=== PATIENT | male | born 1995 | race Caucasian/White ===

== ENCOUNTER 2020-04-23 16:04 | Emergency (ER) | payer BC, SELFPAY ==
--- NOTE | ~2020-04-23 | CT_ITS ---
EXAMINATION: CT soft tissue neck w con DATE: 04/23/2020 17:52 INDICATION: Sore throat for 3 days TECHNIQUE: Computed tomography (CT) of the neck was performed with 75 mL Omnipaque-350 intravenous co ntrast. Automated exposure control and iterative reconstruction technique were employed. Exam dose: 505.76 mGy-cm total exam DLP. COMPARISON: None FINDINGS: 1.6 cm mucous retention cyst or polyp of left maxillary sinus. No cervical mass lesion or abnormally enlarged cervical lymph nodes are noted. The airway is patent. Normal size and homogeneous enhancement of the thyroid gland. The parotid and submandibular glands appear normal. No common and internal carotid artery stricture o r dissection or occlusion is evident. The vertebral and basilar arteries appear intact. No mass lesion of the superior mediastinum. Normal thoracic aortic arch and great vessels. The lung a pices are clear. IMPRESSION: No significant abnormality Reviewed, dictated and finalized at [facility] Reviewed, dictated and finalized at [facility]. SPORTATION AIDE IMPRESSION: No significant abnormality
[2020-04-23 16:07] VITALS: BP 149/79; PULSE 78; RESP 20; TEMP 36.3; O2SAT 100
--- NOTE | 2020-04-23 16:34 | ED.GENADULT ---
HPI - General Adult General Chief complaint: Unspecified Stated complaint: SORE THROAT Time Seen by Provider: 04/23/20 16:16 Source: patient History of Present Illness HPI narrative: Patient is a 24 y/o male complaining of sorethroat for last 3-4 days. He states that his soreness is mild. It seems to be aggravated by swallowing. However, he is able to eat and drink. He feels like there is some narrowing in his throat when he swallows. He denies any fever or cough. Related Data Home Medications Medication Instructions Recorded Confirmed No Home Medications 04/23/20 04/23/20 Allergies Allergy/AdvReac Type Severity Reaction Status Date / Time amoxicillin Allergy Severe passes out Verified 04/23/20 16:06 clavulanic acid Allergy Mild LIGHTHEADED Verified 04/23/20 16:06 NESS Review of Systems Constitutional: Constitutional: Denies chills, Denies fever(s), Denies headache(s) and Denies weakness Eyes: Eyes: Denies blurry vision ENT: Denies headache(s), Denies neck pain and Reports sore throat Cardiovascular: Cardiovascular: Denies chest pain and Denies dyspnea Respiratory: Respiratory: Denies cough and Denies dyspnea Gastrointestinal: Gastrointestinal: Denies abdominal pain, Denies diarrhea, Denies nausea and Denies vomiting Genitourinary: Genitourinary: Denies hematuria and Denies dysuria Musculoskeletal: Musculoskeletal: Denies back pain and Denies neck pain Neurologic: Denies headache(s) and Denies weakness PMFSH Family History Family History Father Diabetes mellitus Hypertension Family history of malignant neoplasm of kidney Patient's father is in good health Mother Patient's mother is in good health Social History Social History Smoking status: Never smoker Second hand tobacco smoke exposure: No Alcohol intake: current Gender identity (if verbalized by the patient): Male Exam Const: General: no acute distress and well developed Orientation/consciousness: oriented to person, oriented to place, oriented to time and patient oriented x3 HENMT: Head: normocephalic Ears: external ears normal General nose exam: Normal external nose present Eyes: General: appearance normal, both eyes and all related structures Conjunctivae: conjunctivae normal Neck: Neck: normal visual inspection and full ROM Chest: Chest palpation & inspection: normal inspection of the chest and no tenderness Resp: Effort & Inspection: normal respiratory effort Auscultation: clear to auscultation bilaterally Cardio: Rate: regular rate Rhythm: regular rhythm GI: GI Palp: No abdominal tenderness and Yes Soft to palpation Skin: General skin exam: normal color and turgor normal Neuro: General: oriented to person, oriented to place, oriented to time and patient oriented x3 Cognition (Neuro): normal cognition Extrem: General: normal to inspection, full ROM and no pedal edema Psych: Appearance: grossly normal Mental Status: mental status grossly normal Affect: normal affect Course Vital Signs Vital signs: Vital Signs Temperature 36.3 C L 04/23/20 16:07 Pulse Rate 78 04/23/20 16:07 Respiratory Rate 04/23/20 16:07 Blood Pressure 149/79 H 04/23/20 16:07 Pulse Oximetry 100 04/23/20 16:07 Temperature 36.3 C L 04/23/20 16:07 Pulse Rate 78 04/23/20 16:07 Respiratory Rate 20 04/23/20 16:07 Blood Pressure 149/79 H 04/23/20 16:07 Pulse Oximetry 100 04/23/20 16:07 Medical Decision Making Vital Signs Vital Signs: Vital Signs Temperature 36.3 C L 04/23/20 16:07 Pulse Rate 78 04/23/20 16:07 Respiratory Rate 20 04/23/20 16:07 Blood Pressure 149/79 H 04/23/20 16:07 Pulse Oximetry 100 04/23/20 16:07 Temperature 36.3 C L 04/23/20 16:07 Pulse Rate 78 04/23/20 16:07 Respiratory Rate 04/23/20 16:07 Blood Pressure 149/79 H 04/23/20 16:07 Pu
[2020-04-23 17:14] LABS: Basophils Percent Auto 0.6 % (0.2-1.2); Eosinophils Absolute Auto 0.2 K/mm3 (0-0.3); Eosinophils Percent Auto 3.1 % (0-4.4); Hematocrit 45.8 % (42.0-52.0); Immature Granulocyte Absolute 0.01 K/mm3 (0.00-0.031); Immature Granulocyte Percent A 0.1 % (0-0.5); Lymphocytes Absolute Auto 2.35 K/mm3 (0.9-3.2); Lymphocytes Percent Auto 32.8 % (18.3-44.2); Mean Corpuscular HGB Conc 34.9 g/dl (32-36); Mean Corpuscular Volume 83.1 fl (80-100); Mean Platelet Volume 11.5 fl (7.4-10.4); Monocytes Absolute Auto 0.4 K/mm3 (0.1-0.6); Monocytes Percent Auto 5.6 % (2.6-8.5); Neutrophils Absolute Auto 4.1 K/mm3 (1.3-6.7); Neutrophils Percent Auto 57.8 % (45.5-73.1); Platelet Count Result 195 k/mm3 (150-375); Red Blood Count 5.51 M/mm3 (4.6-6.20); Red Cell Distribution Width 11.9 % (11.5-14.5); White Blood Count 7.2 K/mm3 (4.5-10.0)
[2020-04-23 17:24] LABS: Anion Gap 11 mmol/L (8-16); Blood Urea Nitrogen 11 mg/dL (9-20); Calcium 9.1 mg/dL (8.4-10.2); Carbon Dioxide 31 mmol/L (22-30); Chloride 98 mmol/L (98-107); Estimated CRCL calculation 123 ml/min; Estimated Glomerular Filt Rate > 60; Glucose 88 mg/dL (75-110); Potassium 3.5 mmol/L (3.4-5.0); Sodium 140 mmol/L (137-145)
== END 2020-04-23 19:00 | disposition home or self-care (01) ==
PROVIDERS: Emergency Provider Emergency Medicine; Family Provider Pediatrics
DX: J02.9 Acute pharyngitis, unspecified (principal); J35.8 Other chronic diseases of tonsils and adenoids
CPT/HCPCS: 36415; 70491; 80048; 85025; 87081; 87880; 99284; Q9967

== ENCOUNTER 2021-06-30 14:01 | Emergency (ER) | payer MEDICAID, SELFPAY ==
[2021-06-30 14:09] VITALS: BP 139/81; PULSE 79; RESP 16; TEMP 36.8; O2SAT 98
--- NOTE | 2021-06-30 14:09 | ED.URI ---
HPI - URI/Sore Throat General Chief Complaint: Upper Respiratory Infection Stated Complaint: sore throat Time Seen by Provider: 06/30/21 14:10 Source: patient, family, RN notes reviewed and old records reviewed Mode of arrival: ambulatory Limitations: no limitations History of Present Illness HPI Narrative: 25-year-old male presents to the [facility] with complaints of a sore throat since June 17, 2 weeks ago, when he was exposed to someone with tonsillitis. Denies fevers. Denies coughing, chest pain, abdominal pain, nausea, vomiting or diarrhea. MD elicited complaint: sore throat Related Data Home Medications Medication Instructions Recorded Confirmed No Home Medications 04/23/20 06/30/21 Allergies Allergy/AdvReac Type Severity Reaction Status Date / Time amoxicillin Allergy Severe passes out Verified 06/30/21 14:07 clavulanic acid Allergy Mild LIGHTHEADED Verified 06/30/21 14:07 NESS Review of Systems Review of Systems: All systems reviewed & are unremarkable except as noted in HPI and below Constitutional: Constitutional: Reports no additional constitutional complaints, Denies chills, Denies fever(s) and Denies headache(s) Eyes: Eyes: Reports no additional eye complaints ENT: Reports as per HPI, Denies vertigo, Denies dizziness, Denies headache(s), Denies nasal congestion and Reports sore throat Cardiovascular: Cardiovascular: Reports no additional cardiovascular complaints, Denies chest pain, Denies syncope, Denies rapid heart rate and Denies dyspnea Respiratory: Respiratory: Reports no additional respiratory complaints, Denies cough, Denies dyspnea and Denies wheezing Gastrointestinal: Gastrointestinal: Reports no additional gastrointestinal complaints, Denies abdominal pain, Denies diarrhea, Denies nausea and Denies vomiting Musculoskeletal: Musculoskeletal: Reports no additional musculoskeletal complaints and Denies numbness Integumentary/Breasts: Skin/Breast: Reports system reviewed and no additional complaints, except as docu Neurologic: Reports system reviewed and no additional complaints, except as documented, Denies vertigo, Denies dizziness, Denies syncope, Denies headache(s), Denies focal weakness and Denies numbness Psychiatric: Psychiatric: Reports no additional psychiatric complaints Allergic/Immunologic: Allergic/Immunologic: Reports no additional allergic/immunologic complaints and Denies wheezing PMFSH Family History Family History Father Diabetes mellitus Hypertension Family history of malignant neoplasm of kidney Patient's father is in good health Mother Patient's mother is in good health Social History Social History Smoking status: Never smoker Second hand tobacco smoke exposure: No Alcohol intake: current Gender identity (if verbalized by the patient): Male Comments At the time of my signature, I reviewed and agree with the nursing past medical, surgical, social, and family history. There is no relevant family history pertinent to the patient complaint. Exam Const: General: cooperative, healthy appearing, no acute distress, well developed and alert Nutritional Appearance: well nourished Orientation/consciousness: patient oriented x3 Limitations: no limitations HENMT: Head: normal to inspection Ears: external ears normal, TM's normal bilaterally and EAC's normal Face and sinus: normal facial exam Mouth: Yes Normal oral and palatal mucosa present Throat: tonsils normal, uvula midline, postnasal drainage and no uvular edema Eyes: Conjunctivae: conjunctivae normal Pupils: Equal, round and reactive pupils present Neck: Neck: normal visual inspection, no lymphadenopathy and no meningeal signs Chest: Chest palpation & inspection: normal inspection of the chest Resp: Effort & Inspection: normal respiratory effort and no use of accessory muscles Ausc
[2021-06-30 14:13] VITALS: BP 139/81; PULSE 79; RESP 16; TEMP 36.8; O2SAT 98
== END 2021-06-30 14:43 | disposition home or self-care (01) ==
PROVIDERS: Emergency Provider Nurse Practitioner
DX: J02.9 Acute pharyngitis, unspecified (principal); R09.82 Postnasal drip; J45.909 Unspecified asthma, uncomplicated
CPT/HCPCS: 87081; 87880; 99213; G0463

== ENCOUNTER 2023-02-01 19:01 | Emergency (ER) | payer BC, SELFPAY ==
[2023-02-01 19:11] VITALS: BP 126/68; PULSE 76; RESP 18; TEMP 36.2; O2SAT 95
[2023-02-01 22:41] VITALS: BP 129/70; PULSE 72; RESP 20; O2SAT 100
[2023-02-01] MEDS: IBUPROFEN 400 MG TABLET 800 MG PO (22:44)
[2023-02-01] MEDS: CLINDAMYCIN HCL 150 MG CAP 300 MG PO (22:44)
--- NOTE | 2023-02-01 22:44 | ED.DENTAL ---
HPI - Dental/Oral General Chief complaint: Dental/Oral Stated complaint: painful gums Time Seen by Provider: 02/01/23 22:15 History of Present Illness HPI Narrative: Patient presents the emergency department with worsening pain and swelling of the gums over the left lower posterior molar. He states he has had issues like this similar since he was younger. However this painful or swollen. Ibuprofen and tylenol at home are not helping his pain. He says that he has been in bed since sx started afew days ago. Denies fever and chills Related Data Allergies Allergy/AdvReac Type Severity Reaction Status Date / Time amoxicillin Allergy Severe passes out Verified 02/01/23 21:00 clavulanic acid Allergy Mild LIGHTHEADED Verified 02/01/23 21:00 NESS Review of Systems Review of Systems: ROS neg except for what is docuemented in the HPI [facility] Family History Family History Father Diabetes mellitus Hypertension Family history of malignant neoplasm of kidney Patient's father is in good health Mother Patient's mother is in good health Social History Social History Smoking status: Never smoker Second hand tobacco smoke exposure: No Alcohol intake: current Gender identity (if verbalized by the patient): Male Exam Narrative: GENERAL: Well-appearing, well-nourished, and in no acute distress. HEAD: Normocephalic, atraumatic. ENT: Nares clear, no rhinorrhea or epistaxis. Mucous membranes moist. left lower gums swollen and tender with fluctuance NECK: Normal ROM CHEST: No respiratory distress. EXTREMITIES: Normal range of motion. SKIN: Warm, dry, no rash. NEURO: No focal deficits. Alert and oriented x3. PSYCH: Normal mood and affect. Course Course Emergency Course: exam consistent with small apical abscess. will d/c with abx and pain meds Vital Signs Vital signs: Vital Signs Temperature 36.2 C L 02/01/23 19:11 Pulse Rate 76 02/01/23 19:11 Respiratory Rate 18 02/01/23 19:11 Blood Pressure 126/68 02/01/23 19:11 Pulse Oximetry 95 02/01/23 19:11 Temperature 36.2 C L 02/01/23 19:11 Pulse Rate 72 02/01/23 22:41 Respiratory Rate 20 02/01/23 22:41 Blood Pressure 129/70 02/01/23 22:41 Pulse Oximetry 100 02/01/23 22:41 Discharge Plan Discharge Clinical Impression: Dental abscess Patient Disposition: Home, Self-Care Condition: Stable Instructions: Antibiotic Form, Dental Abscess (ED) Prescriptions: New hydrocodone-acetaminophen 5-325 mg tablet 1 tablet PO Q6H PRN (Reason: pain) Qty: 20 0RF clindamycin HCl 300 mg capsule 300 mg PO Q8H Qty: 20 0RF Follow-up/Referrals: PHYSICIAN,EAR SPECIALIST [Primary Care Provider] - Stand Alone Forms: Work/School Release IP Time of Disposition: 23:01
== END 2023-02-01 23:12 | disposition home or self-care (01) ==
PROVIDERS: Emergency Provider Emergency Medicine
DX: K04.7 Periapical abscess without sinus (principal)
CPT/HCPCS: 99283; A9270

== ENCOUNTER 2023-12-29 10:23 | Emergency (ER) | payer MEDICAID, SELFPAY ==
--- NOTE | ~2023-12-29 | XR_ITS ---
XR chest 2V Ordering provider: Krishna Martinez MD History: 28 years Male with . Chest pain . Comparison: None. FINDINGS: MEDIASTINUM: The cardiac silhouette is not enlarged. LUNGS: No infiltrates, effusions or pneumothorax. OTHER: No free air under the diaphragm. IMPRESSION: No acute cardiopulmonary pathology. Reviewed, dictated and finalized at [facility].
[2023-12-29 11:03] VITALS: BP 170/86; PULSE 86; RESP 18; TEMP 36.3; O2SAT 100
--- NOTE | 2023-12-29 11:07 | ECG_ITS ---
Test Date: 2023-12-29 11:11:17 Measurements Intervals [place] Rate: 78 P: 44 VA: 134 QRS: 28 QRSD: 93 T: 37 QT: 359 QTc: 409 Interpretive Statements SINUS RHYTHM WITH OCCASIONAL VENTRICULAR PREMATURE COMPLEXES SEPTAL MYOCARDIAL INFARCTION , OF INDETERMINATE AGE [40+ ms Q WAVE IN V1/V2] No previous ECG available for comparison Electronically Signed On 12-29-2023 13:18:44 CDT by Andrew Rousseau M.D.
[2023-12-29 11:24] LABS: Basophils Percent Auto 0.5 % (0.2-1.2); Eosinophils Absolute Auto 0.1 K/mm3 (0-0.3); Eosinophils Percent Auto 2.3 % (0-4.4); Hematocrit 44.9 % (42.0-52.0); Hemoglobin 15.8 g/dL (14.0-18.0); Immature Granulocyte Absolute 0.02 K/mm3 (0.00-0.031); Immature Granulocyte Percent A 0.4 % (0-0.5); Lymphocytes Absolute Auto 1.43 K/mm3 (0.9-3.2); Lymphocytes Percent Auto 25.3 % (18.3-44.2); Mean Corpuscular HGB Conc 35.2 g/dl (32-36); Mean Corpuscular Hemoglobin 30.6 pg (26-34); Mean Platelet Volume 11.1 fl (7.4-10.4); Monocytes Absolute Auto 0.7 K/mm3 (0.1-0.6); Neutrophils Absolute Auto 3.4 K/mm3 (1.3-6.7); Neutrophils Percent Auto 59.5 % (45.5-73.1); Platelet Count Result 205 k/mm3 (150-375); Red Blood Count 5.16 M/mm3 (4.6-6.20); Red Cell Distribution Width 12.2 % (11.5-14.5); White Blood Count 5.7 K/mm3 (4.5-10.0)
[2023-12-29 11:37] LABS: INR 1.1
[2023-12-29 11:38] LABS: Partial Thromboplastin Time 27.3 Seconds (22.3-36.8)
[2023-12-29 11:39] LABS: Alanine Aminotransferase 38 U/L (6-50); Albumin Level 4.8 g/dL (3.5-5.1); Alkaline Phosphatase 70 U/L (38-126); Anion Gap 9 mmol/L (4-12); Aspartate Amino Transferase 30 U/L (17-59); Bilirubin,Total 0.6 mg/dL (0.2-1.3); Blood Urea Nitrogen 13 mg/dL (9-20); Calcium 9.5 mg/dL (8.4-10.2); Carbon Dioxide 29 mmol/L (22-30); Chloride 104 mmol/L (98-107); Estimated CRCL calculation 118 ml/min; Estimated Glomerular Filt Rate > 60; Glucose 96 mg/dL (65-110); Lipase 131 U/L (23-300); Potassium 4.2 mmol/L (3.4-5.0); Sodium 142 mmol/L (137-145)
[2023-12-29 11:49] LABS: Troponin I < 0.012 ng/mL (0.000-0.034)
[2023-12-29 13:12] VITALS: BP 137/84; PULSE 74; RESP 14; TEMP 36.5; O2SAT 99
[2023-12-29 13:19] VITALS: PULSE 70
--- NOTE | 2023-12-29 14:12 | ECG_ITS ---
Test Date: 2023-12-29 14:41:32 Measurements Intervals [place] Rate: 69 P: 40 GA: 141 QRS: 31 QRSD: 97 T: 36 QT: 380 QTc: 408 Interpretive Statements SINUS RHYTHM INTRAVENTRICULAR CONDUCTION DELAY ABNORMAL ECG Compared to ECG 12/29/2023 11:11:17 Ventricular premature complex(es) no longer present Myocardial infarct finding no longer present Electronically Signed On 12-30-2023 13:45:04 CDT by Levi Hinson M.D.
--- NOTE | 2023-12-29 14:15 | ED.GENADULT ---
HPI - General Adult General Chief complaint: Chest Pain Stated complaint: heart pressure Time Seen by Provider: 12/29/23 13:10 History of Present Illness HPI narrative: This is a 28-year-old presenting to the ED with chief complaint chest pain. Over the last several days the patient has had 2 instances of sharp pain in the center of his chest that radiated to his back. They lasted for less than 5 minutes before resolving on their own. He has never had any pain like this before and there are no exacerbating alleviating symptoms. Is not associated with vomiting diaphoresis or exertion. Patient has seen in EP in the past for atrial fibrillation. Patient is currently asymptomatic. No risk factors for DVT/PE Related Data Allergies Allergy/AdvReac Type Severity Reaction Status Date / Time amoxicillin Allergy Severe passes out Verified 02/01/23 21:00 clavulanic acid Allergy Mild LIGHTHEADED Verified 02/01/23 21:00 NESS [facility] Family History Family History Father Diabetes mellitus Hypertension Family history of malignant neoplasm of kidney Patient's father is in good health Mother Patient's mother is in good health Social History Social History Smoking status: Never smoker Second hand tobacco smoke exposure: No Alcohol intake: current Gender identity (if verbalized by the patient): Male Exam Narrative: APPEARANCE: No apparent distress. Head: atraumatic. EYES: EOMI, NOSE: Atraumatic NECK: Trachea midline RESPIRATORY: No increased rate of breathing clear to auscultation CARDIOVASCULAR: RRR, no peripheral edema ABDOMINAL: Non-distended soft nontender MUSCULOSKELETAl: No obvious deformities NEURO: Alert. Moving 4/4 extremities SKIN:: Warm, dry. Normal color PSYCHIATRIC: Normal affect Course Vital Signs Vital signs: Vital Signs Temperature 97.3 F L 12/29/23 11:03 Pulse Rate 86 12/29/23 11:03 Respiratory Rate 18 12/29/23 11:03 Blood Pressure 170/86 H 12/29/23 11:03 Pulse Oximetry 100 12/29/23 11:03 Temperature 97.7 F 12/29/23 13:12 Pulse Rate 82 12/29/23 14:32 Respiratory Rate 17 12/29/23 14:32 Blood Pressure 131/80 12/29/23 14:32 Pulse Oximetry 99 12/29/23 14:32 Oxygen Delivery Room Air 12/29/23 13:17 Medical Decision Making MDM Narrative Medical decision making narrative: -Course: 28-year-old male presenting with chest pain. Chest pain workup negative. Patient is PERC negative. Chest pain is atypical. asymptomatic in the ED. 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 Vital Signs Vital Signs: Vital Signs Temperature 97.3 F L 12/29/23 11:03 Pulse Rate 86 12/29/23 11:03 Respiratory Rate 18 12/29/23 11:03 Blood Pressure 170/86 H 12/29/23 11:03 Pulse Oximetry 100 12/29/23 11:03 Temperature 97.7 F 12/29/23 13:12 Pulse Rate 82 12/29/23 14:32 Respiratory Rate 17 12/29/23 14:32 Blood Pressure 131/80 12/29/23 14:32 Pulse Oximetry 99 12/29/23 14:32 Oxygen Delivery Room Air 12/29/23 13:17 Lab Data 12/29/23 11:16 12/29/23 11:16 Labs: Lab Results 12/29/23 12/29/23 12/29/23 Range/Units 11:15 11:16 14:02 WBC 5.7 (4.5-10.0) K/mm3 RBC 5.1
[2023-12-29 14:30] LABS: Amphetamine Screen Urine Negative (Negative); Barbiturate Screen Urine Negative (Negative); Benzodiazepines Screen Urine Negative (Negative); Cannabinoid Screen Urine Negative (Negative); Cocaine Screen Urine Negative (Negative); Methadone Screen Urine Negative (Negative); Opiate Screen Urine Negative (Negative); Phencyclidine Screen Urine Negative (Negative)
[2023-12-29 14:32] VITALS: BP 131/80; PULSE 82; RESP 17; O2SAT 99
[2023-12-29 15:24] LABS: Troponin I < 0.012 ng/mL (0.000-0.034)
[2023-12-29 15:51] VITALS: PULSE 70; RESP 18; O2SAT 100
== END 2023-12-29 16:03 | disposition home or self-care (01) ==
PROVIDERS: Emergency Provider Emergency Medicine
DX: R07.89 Other chest pain (principal)
CPT/HCPCS: 36415; 71046; 80053; 80307; 83690; 84484; 85025; 85610; 85730; 93005; 99284